=== PATIENT | male | born 1985 | race Caucasian/White ===

== ENCOUNTER 2025-07-30 09:40 | Inpatient (IN) | payer SELFPAY ==
[~2025-07-30] VITALS: Ht 165.1 cm; Wt 74.8 kg
[2025-07-30 09:43] VITALS: O2SAT 98
[2025-07-30] MEDS: CHLORDIAZEPOXIDE 25MG CAPSULE PO ONE (10:00)
[2025-07-30] MEDS: LORAZEPAM 2MG/ML UD SYRINGE IV NR (10:41)
[2025-07-30] MEDS: SODIUM CHLORIDE 0.9% 1,000 ML IV ONE (10:45)
[2025-07-30 11:43] LABS: BASOPHILS % 0.9 % (0.0-2.0); EOSINOPHILS % 0.4 % (0.0-5.0); HEMATOCRIT. 32.8 % (42.0-52.0); HEMOGLOBIN. 10.0 g/dL (14.0-18.0); LYMPHOCYTES % 13.3 % (20.0-50.0); MEAN PLATELET VOLUME 7.8 fl (7.4-10.4); MONOCYTES % 7.0 % (2.0-8.0); NEUTROPHILS % 78.4 % (40.0-76.0); PLATELET 486 x1000/uL (130-400); RED BLOOD CELL COUNT 3.93 mill/uL (4.7-6.1); RED CELL DISTRIBUTION WIDTH 20.8 % (11.6-14.6)
[2025-07-30 11:56] LABS: CREATININE 0.7 mg/dL (0.6-1.3); ETHANOL BLOOD < 10 mg/dL (<10); UREA NITROGEN BLOOD 8 mg/dL (9-23)
[2025-07-30 11:58] LABS: ASPARTATE AMINOTRANSFERASE 49 IU/L (<34); BILIRUBIN DIRECT 0.1 mg/dL (<=3.0); BILIRUBIN TOTAL 0.3 mg/dL (0.1-1.0); PROTEIN TOTAL 8.2 g/dL (6.0-8.3)
[2025-07-30 13:55] LABS: CLARITY URINE CLEAR (CLEAR); COLOR URINE YELLOW (YELLOW); GLUCOSE URINE NEGATIVE (NEGATIVE); KETONES URINE 1+ (NEGATIVE); LEUKOCYTE ESTERASE URINE NEGATIVE (NEGATIVE); NITRITE URINE NEGATIVE (NEGATIVE); OCCULT BLOOD URINE NEGATIVE (NEGATIVE); PH URINE 5.5 (4.5-8.0); PROTEIN URINE 1+ (NEGATIVE); SPECIFIC GRAVITY URINE 1.013 (1.005-1.030); UROBILINOGEN URINE 0.2 E.U./dL (0.2-1.0)
[2025-07-30 14:20] LABS: *AMPHETAMINES SCREEN URINE NEGATIVE (NEGATIVE); *BARBITURATES SCREEN URINE NEGATIVE (NEGATIVE); *BENZODIAZEPINES SCREEN URINE NEGATIVE (NEGATIVE); *COCAINE SCREEN URINE NEGATIVE (NEGATIVE); CANNABINOID URINE SCREEN NEGATIVE (NEGATIVE); ECSTASY MDMA SCREEN URINE NEGATIVE (NEGATIVE); METHADONE URINE SCREEN NEGATIVE (NEGATIVE); OPIATES URINE SCREEN NEGATIVE (NEGATIVE); PHENCYCLIDINE URINE SCREEN NEGATIVE (NEGATIVE)
[2025-07-30] MEDS ORDERED: LORAZEPAM 2MG/ML UD SYRINGE IV PRN ×2 (14:30→16:30)
[2025-07-30] MEDS ORDERED: ONDANSETRON HCL 4MG/2ML INJ IV PRN (14:30)
[2025-07-30] MEDS ORDERED: IPRATROPIUM/ALBUTEROL 0.5-3(2.5)MG/3ML NEB HHN PRN (14:30)
[2025-07-30] MEDS ORDERED: CLONIDINE 0.1MG TABLET PO PRN (14:30)
[2025-07-30] MEDS ORDERED: GUAIFENESIN 200MG/10ML SUGAR FREE UDC PO PRN (14:30)
[2025-07-30] MEDS ORDERED: MAGNESIUM/ALUMINUM HYDROXIDE/SIMETHICONE 30ML UDC PO PRN (14:30)
[2025-07-30] MEDS ORDERED: ACETAMINOPHEN 325MG TABLET PO PRN ×2 (14:30)
[2025-07-30] MEDS ORDERED: DOCUSATE SODIUM 100MG CAPSULE PO PRN (14:30)
[2025-07-30 15:54] VITALS: BP 146/86; PULSE 94; RESP 18; TEMP 38.92
[2025-07-30 16:11] LABS: BACTERIA URINE TRACE; RBC URINE 0-2 /hpf (0-2); SQUAMOUS EPITHELIAL CELL URINE FEW /lpf (RARE/1+); WBC URINE NONE SEEN /hpf (0-2)
[2025-07-30] MEDS: FOLIC ACID 1 MG, THIAMINE HCL 100 MG, MVI, ADULT NO.1 10 ML in DEXTROSE 5% WATER 1,000 ML IV ONE (17:12)
[2025-07-30] MEDS: ENOXAPARIN 40MG/0.4ML SYR SUBCUT SCH (18:16)
[2025-07-30 19:02] LABS: PHENYTOIN < 2.0 ug/mL (10-20); VALPROIC ACID < 3.0 ug/mL (50-100)
[2025-07-30 19:06] LABS: FOLIC ACID (FOLATE) SERUM > 20.00 ng/mL (>5.38)
[2025-07-30 19:07] LABS: VITAMIN B12 SERUM 924 pg/mL (211-911)
[2025-07-30 20:00] VITALS: BP 130/63; PULSE 90; TEMP 36.1; O2SAT 96
[2025-07-30] MEDS ORDERED: LEVETIRACETAM 1,000MG in NACL 100ML PREMIX IV SCH (21:00)
[2025-07-30] MEDS: LEVETIRACETAM 1000MG PREMIX 100 ML IV SCH (21:47)
[2025-07-31] VITALS: BP 121/69; PULSE 86; RESP 18; TEMP 36.5; O2SAT 96
[2025-07-31 04:00] VITALS: BP 111/69; PULSE 77; RESP 18; TEMP 36.8; O2SAT 97
[2025-07-31] MEDS: PANTOPRAZOLE SODIUM 40 MG/VIAL IV SCH (08:10)
[2025-07-31 08:14] VITALS: BP 120/76; PULSE 70; RESP 19; TEMP 37.7; O2SAT 98
[2025-07-31 08:37] LABS: BASOPHILS % 1.1 % (0.0-2.0); EOSINOPHILS % 2.5 % (0.0-5.0); HEMATOCRIT. 32.9 % (42.0-52.0); HEMOGLOBIN. 10.4 g/dL (14.0-18.0); LYMPHOCYTES % 26.8 % (20.0-50.0); MEAN PLATELET VOLUME 7.4 fl (7.4-10.4); MONOCYTES % 13.7 % (2.0-8.0); NEUTROPHILS % 55.9 % (40.0-76.0); PLATELET 463 x1000/uL (130-400); RED BLOOD CELL COUNT 4.10 mill/uL (4.7-6.1); RED CELL DISTRIBUTION WIDTH 20.4 % (11.6-14.6)
[2025-07-31 08:58] LABS: CREATININE 0.7 mg/dL (0.6-1.3); TRIGLYCERIDE 72 mg/dL (0-150); UREA NITROGEN BLOOD 9 mg/dL (9-23)
[2025-07-31 08:59] LABS: LDL CHOLESTEROL 132 mg/dL (5-100)
[2025-07-31 09:01] LABS: T4 FREE 1.16 ng/dL (0.89-1.76)
[2025-07-31] MEDS: KCL 20MEQ/100ML PREMIX 100 ML IV SCH (10:13)
[2025-07-31 10:34] LABS: PHOSPHORUS 2.1 mg/dL (2.5-4.9)
[2025-07-31 12:00] VITALS: BP 126/76; PULSE 78; RESP 20; TEMP 37.6; O2SAT 95
[2025-07-31] MEDS ORDERED: FOLI-43 PO (12:09)
[2025-07-31] MEDS ORDERED: THIA100T72 PO (12:09)
[2025-07-31] MEDS ORDERED: FERR-63 PO (12:09)
[2025-07-31] MEDS ORDERED: LEVE1000 MT (12:09)
[2025-07-31] MEDS: FERROUS SULFATE 325MG TABLET PO SCH (12:12)
[2025-07-31] MEDS: FOLIC ACID 1MG TABLET PO SCH (12:12)
[2025-07-31] MEDS: THIAMINE HCL 100MG TABLET PO SCH (12:12)
[2025-07-31] MEDS: MULTIVITAMINS,THER W-MINERALS TABLET PO SCH (12:12)
[2025-07-31] MEDS: POTASSIUM PHOSPHATE 20 MMOL in DEXT 5% WATER 243.3333 ML IV SCH (14:25)
[2025-07-31 16:00] VITALS: BP 124/66; PULSE 71; RESP 18; TEMP 37.1; O2SAT 100
[2025-07-31 20:00] VITALS: BP 106/60; PULSE 75; RESP 18; TEMP 36.3; O2SAT 98
[2025-08-01] VITALS: BP 118/68; PULSE 60; RESP 18; TEMP 36.7; O2SAT 99
[2025-08-01 04:00] VITALS: BP 140/81; PULSE 74; RESP 18; TEMP 36.3; O2SAT 99
[2025-08-01 08:00] VITALS: BP 132/75; PULSE 60; RESP 18; TEMP 35.9; O2SAT 98
[2025-08-01 12:36] VITALS: BP 127/82; PULSE 87; RESP 18; TEMP 36.5; O2SAT 98
[2025-08-01 13:11] LABS: HEMATOCRIT. 29.8 % (42.0-52.0); HEMOGLOBIN. 9.5 g/dL (14.0-18.0); MEAN PLATELET VOLUME 7.6 fl (7.4-10.4); PLATELET 435 x1000/uL (130-400); RED BLOOD CELL COUNT 3.70 mill/uL (4.7-6.1); RED CELL DISTRIBUTION WIDTH 20.3 % (11.6-14.6)
[2025-08-01 13:26] LABS: CREATININE 0.6 mg/dL (0.6-1.3); UREA NITROGEN BLOOD 8 mg/dL (9-23)
[2025-08-01] MEDS ORDERED: CEPH500T MT (13:33)
[2025-08-01 16:00] VITALS: BP 134/79; PULSE 63; RESP 18; TEMP 36.2; O2SAT 98
[2025-08-01] MEDS: LEVETIRACETAM 1000MG PREMIX 100 ML IV SCH (17:11)
[2025-08-01] MEDS: CEPHALEXIN 250MG CAPSULE PO SCH (17:13)
[2025-08-01 17:44] VITALS: BP 138/70; PULSE 65; RESP 17; TEMP 97.2
[2025-08-01 22:39] LABS: EOSINOPHILS % MANUAL 7.0 % (0.0-5.0); LYMPHOCYTES % MANUAL 28.0 % (20.0-50.0); MONOCYTES % MANUAL 16.0 % (2.0-8.0); NEUTROPHILS % MANUAL 49.0 % (45.0-75.0); PLATELET ESTIMATE NORMAL
== END 2025-08-01 18:54 | disposition home or self-care (01) | DRG 53 ==
LOC: ER 09:40 → 8WST 13:14 → EDBD 13:14 → EDBEDREQ 13:18 → EDBEDREQTM 13:18 → ENRESERV 13:57
PROVIDERS: ADMIT Hospitalist; ATTEND Hospitalist
DX: G40.89 Other seizures (principal); G92.8 Other toxic encephalopathy; E83.39 Other disorders of phosphorus metabolism; L03.116 Cellulitis of left lower limb; Z59.02 Unsheltered homelessness; F10.239 Alcohol dependence with withdrawal, unspecified; D50.9 Iron deficiency anemia, unspecified; D75.839 Thrombocytosis, unspecified; E87.6 Hypokalemia; I51.7 Cardiomegaly; Z91.148 Patient's other noncompliance with medication regimen for other reason; Z86.73 Personal history of transient ischemic attack (TIA), and cerebral infarction without residual deficits
CPT/HCPCS: 36415; 71045; 80048; 80061; 80076; 80165; 80185; 80305; 80320; 81003; 82542; 82550; 82607; 82728; 82746; 83540; 83550; 83735; 83880; 84100; 84439; 84443; 85025; 93005; 96361; 96374; 99291; J1650; J1953; J2060; J2470; J3411; J3480; J3490; J7030; J7060; J7070; G0480